=== PATIENT | male | born 1955 | race Caucasian/White ===

== ENCOUNTER 2018-04-06 10:09 | Day surgery (SDC) | payer OTHER ==
[2018-03-24 17:50] VITALS: BMI 30.7
[2018-04-06] MEDS ORDERED: LIDOCAINE HCL/PF 2% SDV 5ML VIAL ONE (10:43)
[2018-04-06] MEDS ORDERED: PROPOFOL 20 ML ONE ×2 (10:44)
[2018-04-06 11:34] VITALS: BP 119/82; PULSE 77; TEMP 97
--- NOTE | 2018-04-08 10:04 | PATH ---
Surgical Pathology Report Patient Name: ADEBAYO HOGUE [facility]. Rec. #: [id number] /Age/Gender: 1955 (Age: 62) / M Account: [id number] Location: [facility] Taken: 04/06/2018 Received: 04/06/2018 Reported: 04/08/2018 Physicians: Yue Sutherland M.D. Specimen(s) Received A: BX DUODENUM B: BX ANTRUM C: BODY X 2 D: BX GE JUNCTION Clinical History Abdominal pain Postoperative diagnosis: Polyp Final Diagnosis A. SECOND PORTION OF DUODENUM, BIOPSY: DUODENAL MUCOSA WITH NO PATHOLOGIC FINDINGS. B. ANTRUM, BIOPSY: MILD CHRONIC GASTRITIS. IMMUNOSTAIN IS NEGATIVE FOR H. PYLORI ORGANISMS. C. BODY, POLYP (X2), BIOPSY: FUNDIC GLAND POLYP (S). D. GE JUNCTION, BIOPSY: COLUMNAR (GASTRIC-TYPE) MUCOSA SHOWING MILD CHRONIC INFLAMMATION. NO INTESTINAL METAPLASIA IS IDENTIFIED. NO ESOPHAGEAL (SQUAMOUS) MUCOSA IS IDENTIFIED. Electronically Signed Betty Mosley M.D. Gross Description A. Received in formalin, labeled "second portion of duodenum" is a morales, irregular portion of soft tissue measuring 0.3 cm. in greatest dimension. The specimen is submitted in toto in one cassette. B. Received in formalin, labeled "antrum" is a morales, irregular portion of soft tissue measuring 0.5 cm. in greatest dimension. The specimen is submitted in toto in one cassette. C. Received in formalin, labeled "polyp in body x2" are 2 morales, irregular portions of soft tissue measuring 0.3 and 0.4 cm. in greatest dimension. The specimens are submitted in toto in one cassette. D. Received in formalin, labeled "GE junction" is a morales, irregular portion of soft tissue measuring 0.5 cm. in greatest dimension. The specimen is submitted in toto in one cassette. 04/06/201804/06/2018
== END 2018-04-06 11:53 | disposition home or self-care (01) ==
LOC: FASU-ENDO 10:09
PROVIDERS: ATTEND Internal Medicine Gastroenterology
PROC: 0DB78ZX Excision of Stomach, Pylorus, Via Natural or Artificial Opening Endoscopic, Diagnostic (ICD-10-PCS; 2018-04-06)
PROC: 0DB68ZX Excision of Stomach, Via Natural or Artificial Opening Endoscopic, Diagnostic (ICD-10-PCS; 2018-04-06)
PROC: 0DB38ZX Excision of Lower Esophagus, Via Natural or Artificial Opening Endoscopic, Diagnostic (ICD-10-PCS; 2018-04-06)
PROC: 0DB98ZX Excision of Duodenum, Via Natural or Artificial Opening Endoscopic, Diagnostic (ICD-10-PCS; principal; 2018-04-06 11:03)
DX: R10.9 Unspecified abdominal pain (principal); K31.7 Polyp of stomach and duodenum; K29.50 Unspecified chronic gastritis without bleeding
CPT/HCPCS: 88305-TC; 88342-TC

== ENCOUNTER 2018-05-10 09:44 | Day surgery (SDC) | payer OTHER ==
[2018-05-09 15:32] VITALS: BMI 32.5
[2018-05-10 11:06] VITALS: TEMP 97.7
[2018-05-10 11:27] VITALS: PULSE 80
[2018-05-10 11:59] VITALS: BP 127/69
--- NOTE | 2018-05-11 16:08 | PATH ---
Surgical Pathology Report Patient Name: ADEBAYO HOGUE [facility]. Rec. #: [id number] /Age/Gender: 1955 (Age: 62) / M Account: [id number] Location: [facility] Taken: 05/10/2018 Received: 05/10/2018 Reported: 05/11/2018 Physicians: Blaine Munroe D.O. Specimen(s) Received COLON, RIGHT, POLYP Clinical History Colon screening Postoperative diagnosis: Diverticulosis, polyp Final Diagnosis COLON, RIGHT, POLYP, BIOPSY: TUBULAR ADENOMA. Electronically Signed Yue Crowe M.D. Gross Description Received in formalin, labeled "biopsy right colon polyp" are 2 morales, irregular portions of soft tissue averaging 0.3 cm. in greatest dimension. The specimens are submitted in toto in one cassette. /05/10/201805/10/2018
== END 2018-05-10 12:09 | disposition home or self-care (01) ==
LOC: JASU-ENDO 09:44
PROVIDERS: ATTEND Internal Medicine Gastroenterology
PROC: 0DBN8ZX Excision of Sigmoid Colon, Via Natural or Artificial Opening Endoscopic, Diagnostic (ICD-10-PCS; principal; 2018-05-10 10:15)
DX: Z12.11 Encounter for screening for malignant neoplasm of colon (principal); K57.30 Diverticulosis of large intestine without perforation or abscess without bleeding; D12.5 Benign neoplasm of sigmoid colon; K64.8 Other hemorrhoids; I10 Essential (primary) hypertension; K21.9 Gastro-esophageal reflux disease without esophagitis
CPT/HCPCS: 88305-TC

== ENCOUNTER 2021-07-15 14:24 | Emergency (ER) | payer OTHER ==
[2021-07-15 14:36] VITALS: BP 143/78; PULSE 75; TEMP 99.1; BMI 31.6
[2021-07-15 15:16] LABS: HEMATOCRIT 45.6 % (35.4-49); MCH 28.9 pg (25.7-33.7); MCHC 35.1 g/dl (32.0-35.9); MEAN CELL VOLUME 82.4 fl (80-96); RBC 5.53 10^6/uL (4.00-5.60); WHITE BLOOD COUNT 8.9 10^3/uL (4.0-10.8)
[2021-07-15 15:17] LABS: MEAN PLT VOLUME 8.2 fl (7.5-11.1); PLATELET COUNT 241.3 10^3/uL (134-434)
[2021-07-15 15:30] LABS: CALCIUM 9.9 mg/dl (8.5-10); TOT PROT 8.2 g/dl (6.4-8.2)
[2021-07-15 15:31] LABS: ALBUMIN 4.9 g/dl (3.4-5.0); BILIRUBIN,TOTAL 1.6 mg/dl (0.2-1)
[2021-07-15 15:37] LABS: PROTHROMBIN TIME (PATIENT) 12.5 SEC (9.7-13.0)
[2021-07-15 15:38] LABS: ACTIVATED PTT 28.9 SECONDS (25.2-36.5); INR 1.09 (0.83-1.09)
[2021-07-15 16:26] LABS: PLATELET ESTIMATE ADEQUATE
[2021-07-15] MEDS ORDERED: FAMOTIDINE 20 MG/50 ML IVPB 20 MG/50 ML MG IVPB ONE ×2 (16:33→16:34)
== END 2021-07-15 17:59 | disposition home or self-care (01) ==
LOC: FER 14:24
PROC: 3E033GC Introduction of Other Therapeutic Substance into Peripheral Vein, Percutaneous Approach (ICD-10-PCS; principal; 2021-07-15)
DX: R07.9 Chest pain, unspecified (principal)
CPT/HCPCS: 36415; 71045-TC-FY; 80053; 84484; 85025; 85610; 85730; 93005; 99285-25

== ENCOUNTER 2022-03-17 07:46 | Emergency (ER) | payer OTHER ==
[2022-03-17] MEDS ORDERED: SODIUM CHLORIDE 0.9% 500 ML INFUS.BAG IV ONE (08:07)
[2022-03-17] MEDS ORDERED: ONDANSETRON 4 MG/2 ML VIAL IVPUSH ONE (08:07)
[2022-03-17] MEDS ORDERED: LOPERAMIDE HCL 2 MG CAPSULE PO ONE (08:08)
[2022-03-17] MEDS ORDERED: SIMETHICONE 40 MG/0.6 ML BOTTLE PO ONE (08:08)
[2022-03-17] MEDS ORDERED: FAMOTIDINE 20 MG/50 ML IVPB 20 MG/50 ML MG IVPB ONE ×2 (08:08→08:15)
[2022-03-17] MEDS ORDERED: ONDANSETRON 4 MG/2 ML VIAL ONE (08:14)
[2022-03-17] MEDS ORDERED: SIMETHICONE 80 MG TAB.CHEW (FP) ONE (08:15)
[2022-03-17] MEDS ORDERED: LOPERAMIDE HCL 2 MG CAPSULE ONE (08:18)
[2022-03-17 08:32] VITALS: BP 156/93; PULSE 99; RESP 18; TEMP 99.9; BMI 33.3
[2022-03-17] MEDS ORDERED: ACETAMINOPHEN 1000 MG/100 ML BAG IVPB ONE (08:41)
[2022-03-17 08:46] LABS: HEMATOCRIT 45.7 % (35.4-49); MCH 28.6 pg (25.7-33.7); MCHC 35.1 g/dl (32.0-35.9); MEAN CELL VOLUME 81.4 fl (80-96); MEAN PLT VOLUME 8.8 fl (7.5-11.1); PLATELET COUNT 173.9 10^3/uL (134-434); RBC 5.61 10^6/uL (4.00-5.60); RDW 14.7 % (11.9-15.9); WHITE BLOOD COUNT 11.4 10^3/uL (4.0-10.8)
[2022-03-17] MEDS ORDERED: ACETAMINOPHEN INJECTION 100 ML IVPB ONE (08:56)
[2022-03-17 09:03] LABS: ALBUMIN 4.4 g/dl (3.4-5.0); BILIRUBIN,TOTAL 1.9 mg/dl (0.2-1); CALCIUM 9.1 mg/dl (8.5-10); CREATININE 1.2 mg/dl (0.55-1.3); TOT PROT 7.9 g/dl (6.4-8.2)
[2022-03-17 09:52] LABS: PLATELET ESTIMATE ADEQUATE
== END 2022-03-17 10:12 | disposition home or self-care (01) ==
LOC: FER 07:46
PROC: 3E033GC Introduction of Other Therapeutic Substance into Peripheral Vein, Percutaneous Approach (ICD-10-PCS; principal; 2022-03-17)
DX: R19.7 Diarrhea, unspecified (principal)
CPT/HCPCS: 0241U-QW; 36415; 80053; 85027; 99284-25